=== PATIENT | male | born 1955 | race Asian ===

== ENCOUNTER → 2018-11-12 16:41 | Outpatient (CLI) | payer OTHER, SELFPAY ==
--- NOTE | 2018-11-12 16:44 | DI.MRI.S_ITS ---
PROCEDURE: MR CERVICAL SPINE WO CON INDICATIONS: Neck pain and numbness TECHNIQUE: Noncontrast sagittal T1 spin echo and T2 fast spin echo, sagittal STIR, foraminal oblique sagittal T2 fast spin echo, and axial gradient echo or T2 fast spin echo through the cervical spine. COMPARISON: None. FINDINGS: Image quality: Excellent. Alignment and Curvature: There is normal bony alignment. Bone Marrow: Marrow demonstrates normal overall signal. Spinal Cord: Visualized spinal cord has normal size and signal. No cerebellar tonsillar herniation. Paraspinous Soft Tissues: No paravertebral masses. Prevertebral soft tissues are normal in thickness. C2-C3: The disc height is well-preserved. Loss of disc signal is seen at this level. A mild degree of generalized disc osteophyte complex is seen. There is a mild central disc osteophyte protrusion. There is mild right-sided and no significant left-sided neural foraminal narrowing. Mild central canal narrowing is seen. C3-C4: Minimal loss of disc height and disc signal are seen. Moderate generalized disc osteophyte complex is seen. Mild facet joint hypertrophy is seen. Moderate to severe bilateral neural foraminal narrowing is seen. Moderate to severe central canal narrowing is also seen, as on series 3 image 19. C4-C5: The disc height is well-preserved. Loss of disc signal is seen at this level. Moderate generalized disc osteophyte complex is seen. Mild facet joint hypertrophy is seen. There is moderate to severe right-sided and moderate left-sided neural foraminal narrowing seen. Moderate to severe central canal narrowing is seen, with associated mass effect upon the ventral spinal cord, as on series 3 image 23. C5-C6: Mild loss of disc height is seen. Loss of disc signal is seen. Moderate generalized disc osteophyte complex is seen. There is a disc osteophyte protrusion seen within the left lateral recess, as on series 3 image 27. Uncovertebral joint hypertrophy is seen at this level. Mild facet joint hypertrophy is seen. There is moderate to severe bilateral neural foraminal narrowing seen. Moderate to severe central canal narrowing is seen. C6-C7: The disc height is well-preserved. Loss of disc signal is seen at this level. Moderate generalized disc osteophyte complex is seen. Uncovertebral joint hypertrophy is seen at this level. Mild facet joint hypertrophy is seen. There is moderate to severe bilateral neural foraminal narrowing seen at this level. At least moderate central canal narrowing is seen. C7-T1: The disc height is well-preserved. Loss of disc signal is seen at this level. Mild to moderate disc osteophyte complex is seen. There is moderate right-sided and mild left-sided facet hypertrophy seen. There is moderate to severe bilateral neural foraminal narrowing seen, right worse than left. At least moderate central canal narrowing is seen. IMPRESSION: Multiple levels of cervical spine degenerative change are seen. There are several levels of moderate to severe bilateral neural foraminal narrowing. Moderate to severe central canal narrowing can be seen at C3-C4, C4-C5, and C5-C6. Dictated by: Heraclio Lion M.D. on 11/13/2018 at 9:07 Approved by: Heraclio Lion M.D. on 11/13/2018 at 9:16
== END ==
PROVIDERS: Visit Provider Family Medicine
DX: M54.2 Cervicalgia (principal); M47.812 Spondylosis without myelopathy or radiculopathy, cervical region; M48.02 Spinal stenosis, cervical region
CPT/HCPCS: 72141

== ENCOUNTER 2020-04-20 14:55 | Emergency (ER) | payer OTHER, SELFPAY ==
[2020-04-20 15:12] VITALS: BP 165/97; PULSE 88; RESP 17; TEMP 37.1; O2SAT 100
--- NOTE | 2020-04-20 17:40 | ED_ITS ---
HPI - Neck Pain/Injury <LUIS FERNANDO Mata - Last Filed: 04/20/20 17:52> General Chief Complaint: Neck Pain/Injury Stated Complaint: LOWER NECK PAIN NUMBNESS OF RIGHT ARM Time Seen by Provider: 04/20/20 16:50 Source: patient Mode of arrival: Ambulatory Limitations: no limitations History of Present Illness HPI Narrative: This is a 64-year-old male, nonsmoker, who has history of hyperte nsion, hyperlipidemia, multiple level of cervical spine degeneration with moderate to severe bilateral neural foraminal narrowing presents to ED with chief complain of constant neck pain that radiates to right lower arm last 4 days. Patient denies new injury or trauma to the neck but head is spray painted kitchen cabinet on Monday before his symptoms became worse. Patient reports numbness to right arm radiating down to last 3 fingers. He has completed physical therapy last September and just completed 12 sessions of chiropractic treatment without much improvement. He had taken methocarbamol and gabapentin 300 mg t.i.d. dose without much improvement. Patient states ibuprofen does not think for his discomfort. Patient had last MRI test in October 2018. Patient reports now pain is more consistent and also has thoracic back pain. Primary care physician Dr. Main at [facility] and he was referred by her. Related Data Home Medications Medication Instructions Recorded Confirmed MULTIVITAMIN (Multivitamin 1 cap PO EVERY DAY #0 01/19/10 -) aspirin [Adult Aspirin Regimen] 81 mg PO DAILY 04/20/20 04/20/20 atorvastatin [Lipitor] 20 mg PO DAILY 04/20/20 04/20/20 gabapentin [Neurontin] 300 mg PO TID 04/20/20 04/20/20 hydrochlorothiazide 12.5 mg PO DAILY 04/20/20 04/20/20 losartan 50 mg PO DAILY 04/20/20 04/20/20 methocarbamol 500 mg PO Q6-8H 04/20/20 04/20/20 Previous Rx's Medication Instructions Recorded cyclobenzaprine 10 mg PO BEDTIME PRN #7 tab 04/20/20 diclofenac sodium [Voltaren] 2 gram TOP QID #100 gram 04/20/20 gabapentin 600 mg PO TID #30 cap 04/20/20 prednisone 40 mg PO DAILY 4 Days #8 tab 04/20/20 Allergies Allergy/AdvReac Type Severity Reaction Status Date / Time No Known Drug Allergies Allergy Verified 04/20/20 15:17 Review of Systems <LUIS FERNANDO Mata - Last Filed: 04/20/20 17:52> Review of Systems Narrative: General: Denies fever, chills, fatigue, malaise, sweats. HEENT: Denies sinus pain, ear pain, sore throat, difficulty swallowing, dizziness. Respiratory: Denies dyspnea, cough, wheezing, hemoptysis, sputum. Cardiovascular: Denies chest pain, palpitations, orthopnea, edema. Gastrointestinal: Denies nausea, vomiting, abdominal pain, diarrhea, constipation, melena. : Denies dysuria, frequency, incontinence, hematuria, urinary retention. Musculoskeletal: See HPI Skin: Denies rash, skin lesions, or other. Neurologic: Denies weakness, headache, numbness, change in speech, confusion, seizures, incoordination. Psychiatric: No concerning psychosocial issues. 12-point review of systems is negative except for those stated above. Patient History <LUIS FERNANDO Mata - Last Filed: 04/20/20 17:52> Medical History Hyperlipidemia (Acute) Hypertension (Acute) Surgical History History of cholecystectomy (Acute) Social History Smoking Status: Never smoker Smoking Status: Never smoker alcohol intake frequency: a few times a week Substance Use Type: does not use Exam <LUIS FERNANDO Mata - Last Filed: 04/20/20 17:52> Narrative Exam Narrative: My General appearance: well developed, well nourished, in no acute distress. Head: normocephalic, atraumatic, no scalp lesions, non-tender. ENT: Hearing grossly intact. Turbinate without erythema or swelling. Airway patent. Neck/Thyroid: neck supple, decreased range of motion due to pain, no visible masses or meningeal signs. No JVD, non-tender without lymphadenopathy. Skin: no suspicious rashes, lesions over visible areas. Warm and dry and appropriate color for ethnicity. Heart: no clubbing, no cyanosis, no edema. S1 and S2 normal. RRR w/o murmurs, clicks, or bruits. Lungs: Breathing even and unlabored. No stridor. No accessory muscles used. Able to speak in full sentences. Chest: normal shape and expansion. Abdomen: non-obese, non-distended. Neurologic: alert and oriented. Cognitive exam, [employer] and PNS grossly intact on informal exam. Psych: good eye contact, normal affect. Initial Vital Signs Initial Vital Signs: Vital Signs Temperature 98.7 F 04/20/20 15:12 Pulse Rate 88 04/20/20 15:12 Respiratory Rate 17 04/20/20 15:12 Blood Pressure 165/97 H 04/20/20 15:12 Pulse Oximetry 100 04/20/20 15:12 Back/Spine/Pelvis Cervical Spine: No step off deformity Thoracic/Lumbar Spine: thoracic and lumbar spine normal to inspection, pain with thoraco-lumbar ROM and paraspinal tenderness <Miguel Angel Alejandre MD - Last Filed: 04/20/20 18:37> Initial Vital Signs Initial Vital Signs: Vital Signs Temperature 98.7 F 04/20/20 15:12 Pulse Rate 88 04/20/20 15:12 Respiratory Rate 17 04/20/20 15:12 Blood Pressure 165/97 H 04/20/20 15:12 Pulse Oximetry 100 04/20/20 15:12 Scores <LUIS FERNANDO Mata - Last Filed: 04/20/20 17:52> GCS Caitlyn coma scale eye opening: Spontaneous Caitlyn coma scale verbal response: Orientated Caitlyn coma scale motor response: Obey commands Caitlyn coma scale total score: 15 Course <LUIS FERNANDO Mata - Last Filed: 04/20/20 17:52> Orders Ordered: Discontinued Medications Prednisone (Deltasone) 40 mg PO NOW ONE Stop: 04/20/20 17:31 Last Admin: 04/20/20 18:11 Dose: 40 mg Documented by: MACARENA Vital Signs Vital signs: Vital Signs - 8 hr 04/20/20 15:12 04/20/20 18:31 Temperature 98.7 F Pulse Rate 88 71 Respiratory Rate 17 18 Blood Pressure 165/97 H 141/92 H Pulse Oximetry 100 98 <Miguel Angel Alejandre MD - Last Filed: 04/20/20 18:37> Orders Ordered: Discontinued Medications Prednisone (Deltasone) 40 mg PO NOW ONE Stop: 04/20/20 17:31 Last Admin: 04/20/20 18:11 Dose: 40 mg Documented by: MACARENA Vital Signs Vital signs: Vital Signs - 8 hr 04/20/20 15:12 04/20/20 18:31 Temperature 98.7 F Pulse Rate 88 71 Respiratory Rate 17 18 Blood Pressure 165/97 H 141/92 H Pulse Oximetry 100 98 MDM - Neck Pain/Injury <LUIS FERNANDO Mata - Last Filed: 04/20/20 17:52> Differential Diagnosis Differential diagnosis: Likely disc disorder of cervical region, cervical radiculopathy and strain of neck muscle MDM Narrative Medical decision making narrative: MRI test in October 2018 shows multiple levels of cervical spine degenerative changes. There are several levels of moderate to severe bilateral neuroforaminal narrowing at C3-C4, C4-C5, C5-C6. Patient reports neck pain radiating down to right arm with associated numbness to last 3 fingers. Patient denies recent injury or trauma but had overused by spray painting kitchen cabinet prior pain persists. With shared decision making, new imaging test has been deferred. Patient advised to follow up with his primary care physician for advanced imaging test on thoracic spine and or repeat cervical spine. Patient advised to increase gabapentin dose to 2 tabs of 300 mg from 1 tab 3 times a day. Patient was put on short course of prednisone. Patient advised to stop taking methocarbamol and try Flexeril and night as needed for muscle relaxation. Patient states he has lidocaine patch when this was offered which is not helpful. Patient provided with Voltaren gel for anti-inflammatory purpose. Advised to use this when he is not taking ibuprofen, Motrin, other NSAIDS. Patient offered a soft collar to use as needed to remind him not to rotate, flex, extend excessively which increases pain. Patient advised to follow-up with primary care physician and a referral to [facility] for an evaluation by pulmonary disease specialist. Return precautions were discussed with the patient. Patient verbalized understanding and agreement with the treatment plan. Discharge Plan Departure Patient Disposition: Home Clinical Impression: Cervical radiculopathy Back pain, thoracic Qualifiers: Chronicity: unspecified Back pain laterality: bilateral Qualified Code(s): M54.6 - Pain in thoracic spine Discharge Date/Time: 04/20/20 18:31 Instructions: DI for Cervical Radiculopathy, DI for Thoracic Back Pain Activity Restrictions/Additional Instructions: You have been diagnosed with [cervical radiculopathy, thoracic pain.]. What to do: *Take your medications as directed. Your given 1st dose of prednisone while in ED. please take 40 mg daily for next 4 days. You can use Voltaren gel on affected area for pain up to 4 times a day as needed. You can use Muscle relaxant cyclobenzaprine/Flexeril as needed especially at night to help with sleep. You can increase gabapentin dose up to 2 tabs as needed for pain. You can also take [id number] Tylenol as needed for discomfort. Tylenol 650-1 000 mg up to 3 to 4 times a day as needed. *Follow up with your primary care provider in 2-3 days, call for an appointment. Let them know you were seen in the ED and that we asked you to be seen in [facility]. You may need advanced imaging test on her thoracic or repeat in [facility]- spine. In the meantime please wear soft collar if this is helpful for the neck pain. You can contact [facility] to consult with Spine doctor with your symptoms. *Return to ED if you have any new, worsening, or concerning symptoms, such as [chest pain, breathing difficulty, unable to tolerate fluids, fever, increasing pain/numbness/weakness to her extremities or any acute concerns]. Prescriptions: New cyclobenzaprine 10 mg tablet 10 mg PO BEDTIME PRN (Reason: muscle spasm) Qty: 7 RF: 0 gabapentin 300 mg capsule 600 mg PO TID Qty: 30 RF: 0 diclofenac sodium [Voltaren] 1 % gel 2 gram TOP QID Qty: 100 RF: 0 prednisone 20 mg tablet 40 mg PO DAILY 4 Days Qty: 8 RF: 0 No Action MULTIVITAMIN (Multivitamin -) 1 cap PO EVERY DAY Qty: 0 RF: 0 losartan 50 mg tablet 50 mg PO DAILY RF: 0 methocarbamol 500 mg tablet 500 mg PO Q6-8H RF: 0 atorvastatin [Lipitor] 20 mg tablet 20 mg PO DAILY RF: 0 aspirin [Adult Aspirin Regimen] 81 mg tablet,delayed release (DR/EC) 81 mg PO DAILY RF: 0 gabapentin [Neurontin] 300 mg capsule 300 mg PO TID RF: 0 hydrochlorothiazide 12.5 mg tablet 12.5 mg PO DAILY RF: 0 Referrals: [facility] [Provider Group] Christine Grande [Primary Care Provider] -
[2020-04-20] MEDS: predniSONE 20 MG TABLET 40 MG PO (18:11)
[2020-04-20 18:31] VITALS: BP 141/92; PULSE 71; RESP 18; O2SAT 98
== END 2020-04-20 18:31 | disposition home or self-care (01) ==
PROVIDERS: Emergency Provider Nurse Practitioner Family; PCP Internal Medicine
DX: M54.12 Radiculopathy, cervical region (principal); M54.6 Pain in thoracic spine; I10 Essential (primary) hypertension; E78.5 Hyperlipidemia, unspecified; R20.0 Anesthesia of skin
CPT/HCPCS: 99283

== ENCOUNTER → 2020-11-25 13:15 | Outpatient (CLI) | payer OTHER, SELFPAY ==
[2020-11-25 16:09] LABS: COVID19 -Nasal RAPID Negative (Negative)
== END ==
PROVIDERS: PCP Internal Medicine; Visit Provider Family Medicine Sleep Medicine
DX: Z20.822 Contact with and (suspected) exposure to COVID-19 (principal)
CPT/HCPCS: 87635; C9803

== ENCOUNTER → 2020-12-16 12:33 | Outpatient (CLI) | payer OTHER, SELFPAY ==
[2020-12-16 14:00] LABS: COVID19 -Nasal RAPID Negative (Negative)
== END ==
PROVIDERS: Referring Provider Family Medicine Sleep Medicine; Visit Provider Family Medicine Sleep Medicine
DX: Z20.822 Contact with and (suspected) exposure to COVID-19 (principal)
CPT/HCPCS: 87635; C9803

== ENCOUNTER 2025-01-16 15:37 | Emergency (ER) | payer MEDICARE, OTHER, SELFPAY ==
[2025-01-16] VITALS (8 sets, daily range): BP systolic 113–138; BP diastolic 75–81; PULSE 79–93; RESP 18; TEMP 36.2; O2SAT 93–97; BMI 28.3
[2025-01-16 16:07] LABS: Add Manual Diff / Slide Review NO; Basophils Absolute Auto 100 /uL (0-100); Basophils Percent Auto 0.9 % (0-2); Eosinophils Absolute Auto 200 /uL (0-450); Hemoglobin 16.3 g/dL (13.5-17.5); Lymphocytes Absolute Auto 1500 /uL (1100-4500); Lymphocytes Percent Auto 27.3 % (25-40); Mean Corpuscular HGB Conc 33.9 % (30-36); Mean Corpuscular Hemoglobin 31.5 PG (26-34); Mean Corpuscular Volume 92.8 fL (80-100); Monocytes Absolute Auto 400 /uL (0-900); Monocytes Percent Auto 7.5 % (3-14); Neutrophils Absolute Auto 3400 /uL (1500-7000); Neutrophils Percent Auto 61.3 % (50-75); Platelet Count 174 X10^3/uL (150-400); Red Blood Cell Count 5.17 X10^6/uL (4.5-5.9); Red Cell Distribution Width 13.2 % (11.6-14.8); White Blood Cell Count 5.6 X10^3/uL (4.5-11.0)
--- NOTE | 2025-01-16 16:11 | DI.CT.S_ITS ---
PROCEDURE: CT ABDOMEN PELVIS W CON INDICATIONS: abd pain TECHNIQUE: After the administration of intravenous contrast, axial sections acquired from the lung bases to the pubic symphysis. Coronal and sagittal reformats were performed. For radiation dose reduction, the following was used: automated exposure control, adjustment of mA and/or kV according to patient size. COMPARISON: None. FINDINGS: Image quality: Diagnostic. Lower Chest: No significant findings. ABDOMEN: Liver: No solid mass. Gallbladder: Gallbladder is surgically absent. Biliary ducts: No biliary dilation. Pancreas: No ductal dilation. Spleen: Size is within normal limits. Adrenal Glands: No adrenal nodules. Kidneys and Ureters: No hydronephrosis. No solid mass. No complex renal cystic lesion which requires follow up. Stomach and Bowel: Normal colonic caliber, without significant wall thickening. Sigmoid diverticulosis without CT evidence of acute diverticulitis. No focal inflammatory changes are noted in right lower quadrant. No abscess collection. Fecal stasis is seen in sigmoid colon and rectum. Peritoneum: No abnormal intraperitoneal fluid. No free air. Ventral Wall: No significant ventral hernia. Abdominal Nodes: No retroperitoneal or mesenteric adenopathy by size criteria. Vessels: Aorta and inferior vena cava are normal in size. PELVIS: Pelvic Organs: Enlarged prostate gland with mass effect on floor of urinary bladder. Bladder: Diffuse bladder wall thickening concerning for infectious or inflammatory cystitis. Mild perivesicular fat stranding is also seen. Pelvic Nodes: No enlarged lymph nodes. Miscellaneous: No inguinal hernias are seen. Bones: No aggressive osseous abnormality. IMPRESSION: 1. No bowel obstruction or abnormal bowel wall thickening. No evidence of acute appendicitis or diverticulitis. Mild constipation. No abscess collection. No free fluid or free air. 2. Diffuse bladder wall thickening with mild perivesicular fat stranding concerning for infectious or inflammatory cystitis. No obstructing renal stones or hydronephrosis. 3. Enlarged prostate gland with mass effect the bladder. Dictated by: Esteban Dukes M.D. on 01/16/2025 at 16:56 Approved by: Esteban Dukes M.D. on 01/16/2025 at 16:58
--- NOTE | 2025-01-16 16:17 | EKG_ITS ---
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
[2025-01-16 16:22] LABS: Alanine Aminotransferase 60 IU/L (<50); Albumin 4.6 g/dL (3.5-5.0); Albumin Globulin Ratio 1.2 (1.0-2.8); Alkaline Phosphatase 67 U/L (38-126); Aspartate Aminotransferase 58 IU/L (17-59); Bilirubin Total 1.9 mg/dL (0.2-1.3); Blood Urea Nitrogen 15 mg/dL (9-20); Calcium 9.6 mg/dL (8.4-10.2); Carbon Dioxide 31 mmol/L (22-32); Chloride 100 mmol/L (98-107); Estimated Glomerular Filt Rate > 60 mL/min (>60); Globulin 3.8 g/dL (1.7-4.1); Glucose 136 mg/dL (80-110); Lipase 109 U/L (23-300); Sodium 139 mmol/L (137-145); Total Protein 8.4 g/dL (6.3-8.2)
[2025-01-16 16:24] LABS: HEMOLYSIS 67 (0-50); Potassium 3.6 mmol/L (3.4-5.1)
--- NOTE | 2025-01-16 17:37 | ED.ABDPAIN ---
HPI - Abdominal Pain General Chief Complaint: Abdominal Pain Stated Complaint: lft upper quad px x2days Time Seen by Provider: 01/16/25 16:11 History of Present Illness HPI narrative: 69-year-old male complains of left-sided upper abdominal pain for the last 2 days, no nausea or vomiting diarrhea, denies history of kidney stones, no frequency with urination, no painful urination, no fevers or chills. Last bowel movement unremarkable earlier today. No cough or shortness of breath. No injury or trauma or new activities. Denies black or red stools. Related Data Home Medications Medication Instructions Recorded Confirmed MULTIVITAMIN (Multivitamin 1 cap PO EVERY DAY ##0 01/19/10 07/15/21 -) aspirin 81 mg tablet,delayed 81 mg PO DAILY 04/20/20 07/15/21 release (Adult Aspirin Regimen) atorvastatin 20 mg tablet (Lipitor) 20 mg PO DAILY 04/20/20 07/15/21 hydrochlorothiazide 12.5 mg tablet 12.5 mg PO DAILY 04/20/20 07/15/21 losartan 50 mg tablet 50 mg PO DAILY 04/20/20 07/15/21 tamsulosin 0.4 mg capsule (Flomax) 0.4 mg PO DAILY 07/15/21 07/15/21 Previous Rx's Medication Instructions Recorded diclofenac sodium 1 % topical gel 2 gram topical QID #100 grams 04/20/20 (Voltaren) Allergies Allergy/AdvReac Type Severity Reaction Status Date / Time No Known Drug Allergies Allergy Verified 07/15/21 08:59 Patient History Medical History Excessive daytime sleepiness Hyperlipidemia Hypertension 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 HEAD: Atraumatic. Normocephalic. EYES: Pupils equal round and reactive. Extraocular motions intact. No scleral icterus. No injection or drainage. ENT: Nose without bleeding, purulent drainage. Throat without erythema, tonsillar hypertrophy or exudate. Airway patent. NECK: Trachea midline. Non tender CARDIOVASCULAR: Regular rate and rhythm without murmurs, gallops, or rubs. RESPIRATORY: Clear to auscultation. Breath sounds equal bilaterally. No wheezes, rales, or rhonchi. GASTROINTESTINAL: Abdomen soft, non-tender, nondistended. EXTREMITIES: No edema or joint tenderness. BACK: Nontender without deformity or crepitance. No flank tenderness. NEURO: AOx3. Motor functions grossly nonfocal SKIN: No rash or erythema of visible areas Initial Vital Signs Initial Vital Signs: Vital Signs Temperature 97.1 F L 01/16/25 15:42 Pulse Rate 90 01/16/25 15:42 Respiratory Rate 18 01/16/25 15:42 Blood Pressure 138/76 01/16/25 15:42 Pulse Oximetry 95 01/16/25 15:42 Oxygen Delivery Method Room Air 01/16/25 15:42 Course Orders Ordered: Discontinued Medications Ketorolac Tromethamine (Ketorolac 30 Mg/Ml Vial) 15 mg IV NOW ONE Stop: 01/16/25 17:55 Last Admin: 01/16/25 18:40 Dose: 15 mg Documented By: ANIL Ondansetron HCl (Ondansetron 4 Mg/2 Ml Inj) 4 mg IV NOW PRN PRN Reason: Nausea And Vomiting Ondansetron HCl (Ondansetron 4 Mg Odt) 4 mg PO NOW PRN PRN Reason: Nausea And Vomiting Vital Signs Vital signs: Vital Signs - 8 hr 01/16/25 15:42 01/16/25 15:53 01/16/25 15:54 Temperature 97.1 F L Pulse Rate 90 89 92 H Respiratory Rate 18 Blood Pressure 138/76 Pulse Oximetry 95 97 95 Oxygen Delivery Method Room Air 01/16/25 15:54 01/16/25 16:00 01/16/25 16:00 Temperature Pulse Rate 93 H Respiratory Rate Blood Pressure 124/81 113/75 Pulse Oximetry 94 Oxygen Delivery Method 01/16/25 17:12 01/16/25 17:12 01/16/25 17:30 Temperature Pulse Rate 82 79 Respiratory Rate Blood Pressure 122/80 Pulse Oximetry 97 96 Oxygen Delivery Method 01/16/25 18:00 01/16/25 18:30 Temperature Pulse Rate 83 81 Respiratory Rate Blood Pressure Pulse Oximetry 93 96 Oxygen Delivery Method MDM - Abdominal Pain Lab Data Attestation: I reviewed the patient's lab results. Lab results narrative: White blood cell count 5600, hemoglobin 16.3, platelets 174,000. Glucose 136. Renal function normal. Sodium 139, potassium 3.6, serum CO31. Total bilirubin 1.9 slight elevation, AST 60 slight elevation, normal ALT, normal alkaline phosphatase. Lipase normal. 01/16/25 15:57 01/16/25 15:57 Labs: Lab Results 01/16/25 Range/Units 15:57 WBC 5.6 (4.5-11.0) X10^3/uL RBC 5.17 (4.5-5.9) X10^6/uL Hgb 16.3 (13.5-17.5) g/dL Hct 48.0 (41-53) % MCV 92.8 (80-100) fL MCH 31.5 (26-34) PG MCHC 33.9 (30-36) % RDW 13.2 (11.6-14.8) % Plt Count 174 (150-400) X10^3/uL Neut % (Auto) 61.3 (50-75) % Lymph % (Auto) 27.3 (25-40) % [place] % (Auto) 7.5 (3-14) % Eos % (Auto) 3.0 (2-4) % Baso % (Auto) 0.9 (0-2) % Neut # (Auto) 3400 (0553-7254) /uL Lymph # (Auto) 1500 (1666-1818) /uL [place] # (Auto) 400 (0-900) /uL Eos # (Auto) 200 (0-450) /uL Baso # (Auto) 100 (0-100) /uL Sodium 139 (137-145) mmol/L Potassium 3.6 (3.4-5.1) mmol/L Chloride 100 (98-107) mmol/L Carbon Dioxide 31 (22-32) mmol/L BUN 15 (9-20) mg/dL Creatinine 0.94 (0.66-1.25) mg/dL Estimated GFR > 60 (>60) mL/min BUN/Creatinine Ratio 16.0 (6-22) Glucose 136 H (80-110) mg/dL Calcium 9.6 (8.4-10.2) mg/dL Total Bilirubin 1.9 H (0.2-1.3) mg/dL AST 58 (17-59) IU/L ALT 60 H (<50) IU/L Alkaline Phosphatase 67 (38-126) U/L Total Protein 8.4 H (6.3-8.2) g/dL Albumin 4.6 (3.5-5.0) g/dL Globulin 3.8 (1.7-4.1) g/dL Albumin/Globulin Ratio 1.2 (1.0-2.8) Lipase 109 (23-300) U/L Point of care testing: Urine Dip Bedside Urine Glucose Negative Bedside Urine Bilirubin - Negative Bedside Urine Ketone - Negative Urine Specific [place] 1.010 Bedside Urine Occult Blood - Negative Bedside Urine pH 7.0 Bedside Urine Protein - Negative Bedside Urine Urobilinogen - Negative Bedside Urine Nitrite - Negative Bedside Urine Leukocytes - Negative Esterase Imaging Data CT scan - abdomen/pelvis: Radiologist's Impression: Close Abdomen/Pelvis CT (Signed) Esteban Dukes - 01/16/25 [place] [address] CT Scan Report Signed Patient: Colten Cerrato MR#: [id number] : 1955 Acct:[id number] Age/Sex: 69 / M Date of Service: 01/16/25 Loc: ED Accession Number: [id number] Procedure: CT abdomen pelvis w con Ordering Provider: Alonzo Vasquez MD PROCEDURE: CT ABDOMEN PELVIS W CON INDICATIONS: abd pain TECHNIQUE: After the administration of intravenous contrast, axial sections acquired from the lung bases to the pubic symphysis. Coronal and sagittal reformats were performed. For radiation dose reduction, the following was used: automated exposure control, adjustment of mA and/or kV according to patient size. COMPARISON: None. FINDINGS: Image quality: Diagnostic. Lower Chest: No significant findings. ABDOMEN: Liver: No solid mass. Gallbladder: Gallbladder is surgically absent. Biliary ducts: No biliary dilation. Pancreas: No ductal dilation. Spleen: Size is within normal limits. Adrenal Glands: No adrenal nodules. Kidneys and Ureters: No hydronephrosis. No solid mass. No complex renal cystic lesion which requires follow up. Stomach and Bowel: Normal colonic caliber, without significant wall thickening. Sigmoid diverticulosis without CT evidence of acute diverticulitis. No focal inflammatory changes are noted in right lower quadrant. No abscess collection. Fecal stasis is seen in sigmoid colon and rectum. Peritoneum: No abnormal intraperitoneal fluid. No free air. Ventral Wall: No significant ventral hernia. Abdominal Nodes: No retroperitoneal or mesenteric adenopathy by size criteria. Vessels: Aorta and inferior vena cava are normal in size. PELVIS: Pelvic Organs: Enlarged prostate gland with mass effect on floor of urinary bladder. Bladder: Diffuse bladder wall thickening concerning for infectious or inflammatory cystitis. Mild perivesicular fat stranding is also seen. Pelvic Nodes: No enlarged lymph nodes. Miscellaneous: No inguinal hernias are seen. Bones: No aggressive osseous abnormality. IMPRESSION: 1. No bowel obstruction or abnormal bowel wall thickening. No evidence of acute appendicitis or diverticulitis. Mild constipation. No abscess collection. No free fluid or free air. 2. Diffuse bladder wall thickening with mild perivesicular fat stranding concerning for infectious or inflammatory cystitis. No obstructing renal stones or hydronephrosis. 3. Enlarged prostate gland with mass effect the bladder. Dictated by: Esteban Dukes M.D. on 01/16/2025 at 16:56 Approved by: Esteban Dukes M.D. on 01/16/2025 at 16:58 ECG Data Attestation: I personally reviewed and interpreted this ECG as follows: Interpretation: Normal sinus rhythm with rate of 85, no obvious ST segment elevation or depression changes. T-wave inversion lead 3 noted, upright lead to an flat AVF. WV 206, QRS 96, QTC 423. MDM Narrative Medical decision making narrative: 69-year-old male with left-sided abdominal pain, no significant tenderness on exam. Afebrile, sirs screen negative. Labs pending, urinalysis pending. Consider CT imaging. IV Toradol. CT abdomen and pelvis. Impressions: ?No bowel obstruction or abnormal bowel wall thickening. No evidence of acute appendicitis or diverticulitis. Mild constipation. No abscess collection. No free fluid or free air. Diffuse bladder wall thickening with mild perivesicular fat stranding concerning for infectious or inflammatory cystitis. No obstructing renal stones or hydronephrosis. Enlarged prostate gland with mass effect on the bladder. ? See radiology report. CT report discussed with patient. Unclear cause of his symptoms. Urinalysis was negative, however we will request a urine culture. We will hold on empiric antibiotics. Follow up with his urologist in [facility] advised, also given contact information for local urologists if needed for follow up. Discharge Plan Departure Patient Disposition: Home Clinical Impression: Abdominal pain, Bladder wall thickening, Constipation Activity Restrictions/Additional Instructions: Left-sided nontraumatic abdominal pain of unclear cause. History of prior appendix removal, history of prior gallbladder removal. No fever on triage. No significant tenderness on examination. Screening labs unremarkable. Urinalysis also unremarkable. CT abdomen and pelvis showed no definite cause for your discomfort. On your CT scan you did have some constipation though radiology mentioned it as mild, unclear how much of your symptoms might be related to constipation, though you might consider [id number] MiraLax oral laxative medications to see if this helps any of your discomfort. Also on the CT scan there was some thickening of your bladder, however your urinalysis was unremarkable. Unclear if this is related to your pain, however consider follow up with your urologist to make sure of the bladder wall thickening is not cancerous or some other noninfectious noninflammatory cause. Urine culture was requested. Urinalysis was generally negative, we will hold antibiotics for now pending urine culture results. Consider follow up with your urologist. Contact information also provided for local urologists through [facility]. Recheck symptoms with your regular doctor in the next few days. Return to this/nearest emergency department for any change worsening symptoms or any concerns prior. Prescriptions: No Action MULTIVITAMIN (Multivitamin -) 1 cap PO EVERY DAY Qty: 0 losartan 50 mg tablet 50 mg PO DAILY atorvastatin [Lipitor] 20 mg tablet 20 mg PO DAILY aspirin [Adult Aspirin Regimen] 81 mg tablet,delayed release (DR/EC) 81 mg PO DAILY hydrochlorothiazide 12.5 mg tablet 12.5 mg PO DAILY diclofenac sodium [Voltaren] 1 % gel 2 gram TOP QID Qty: 100 0RF Rx Instructions: apply to single elbow, wrist or hand; for hand includes palm/fingers/back of hand tamsulosin [Flomax] 0.4 mg capsule 0.4 mg PO DAILY Referrals: Eagle Scales DO [Physician] - Miscellaneous,MD Milton [Primary Care Provider] - Patrick Lee MD [Physician] - Stand Alone Forms: Patient Portal/API/Survey
[2025-01-16] MEDS: KETOROLAC 30 MG/ML VIAL 15 MG IV (18:40)
== END 2025-01-16 18:51 | disposition home or self-care (01) ==
PROVIDERS: Emergency Provider Emergency Medicine
DX: R10.12 Left upper quadrant pain (principal); N32.89 Other specified disorders of bladder; K59.00 Constipation, unspecified
CPT/HCPCS: 36415; 74177; 80053; 81003; 83690; 85025; 87086; 93005; 93010; 96374; 99284; J1885; Q9967